=== PATIENT | female | born 1945 | race Caucasian/White ===

== ENCOUNTER 2016-06-25 15:11 | Inpatient (IN) | payer MEDICARE, MEDICAID ==
[~2016-06-25] VITALS: Ht 152.4 cm; Wt 66.6 kg
--- NOTE | ~2016-06-25 | WND ---
ADMIT: 06/25/2016 RM/LOC: 533 [facility] MR#: [id number] [address] [address] [place] [address] Wound Care Clinic SEX: F AGE: 71 : 1945 DATE OF VISIT: 06/26/2016 TIME OF VISIT: 40 minutes. REASON FOR VISIT: Evaluation and treatment of bilateral lower extremity ulcerations. HISTORY OF PRESENT ILLNESS: Sheire is a 71-year-old female, who was admitted to the hospital for increased confusion. She is well known to Wound Care as we have followed her in the past for venous insufficiency ulcers. She is currently being followed by Dermatology for Unna boot changes 2 times weekly. The patient is pleasantly confused. Her granddaughter is at her bedside. 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 PAST SURGICAL HISTORY: History of appendectomy, back surgery, kyphoplasties for osteoporosis, cholecystectomy, EGDs with evidence of upper gastrointestinal bleed, hip surgery, fracture of both hips in 2011, neck surgery, and tonsillectomy. SOCIAL HISTORY: She is residing in a snf. She used to reside in [place] with her sister. She also lived in [place]. She denies any tobacco, alcohol, or illicit drug use. 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 ALLERGIES: Neosporin, penicillin, mycin, Plavix, doxycycline, Bactroban, cephalosporins, macrolides, ketolides, neomycin, polymyxin, and sulfa. CURRENT MEDICATIONS: Being held due to the increased confusion; however, according to the chart per Dr. Salazar, her medication list: 1. Acetaminophen. 2. Benadryl. 3. BenGay. 4. Tessalon Perles. 5. Calcium supplementation. 6. Carafate. 7. Cetirizine. 8. Cyclobenzaprine. 9. Docusate sodium. 10.Fentanyl. 11.Iron. 12.Flonase. 13.Potassium supplementation. ADMIT: 06/25/2016 RM/LOC: 533 [facility] MR#: [id number] [address] [address] [place] [address] Wound Care Clinic SEX: F AGE: 71 : 1945 14.Lasix. 15.Maalox. 16.Metoprolol. 17.Bactroban. 18.Sliding scale insulin. 19.Nystatin. 20.Omeprazole. 21.Oxycodone. 22.Requip. 23.Seroquel. 24.Zoloft. 25.Tylenol. 26.Vitamin D. REVIEW OF SYSTEMS: It is difficult to obtain review of systems secondary to her confusion. PHYSICAL EXAMINATION: VITAL SIGNS: Blood pressure 107/53, pulse 90, temperature 97.8, and respirations 20. GENERAL: Sherie is an alert, 71-year-old, but is pleasantly confused. EXTREMITIES: Assessment of bilateral lower extremities reveals intact Unna boots. Upon removal, it is noted the patient has hemosiderin staining to bilateral lower extremities. She has no edema. She has 2+ dorsalis pedis pulses bilaterally. Minimal hair growth below the knee. She has a superficial ulceration on her left anterior quinteros that measures 3 cm in width x 1 cm in length x 0.1 cm in depth. No other open draining areas are noted. She does have a lacy reticular rash over her bilateral thighs and torso both anteriorly and posteriorly. She does report pruritus with this. ASSESSMENT: 1. Venous insufficiency with venous insufficiency ulcer. 2. Rash. 3. Type 2 diabetes mellitus. ADMIT: 06/25/2016 RM/LOC: 533 [facility] MR#: [id number] [address] [address] [place] [address] Wound Care Clinic SEX: F AGE: 71 : 1945 PLAN: After cleansing bilateral lower extremities well with warm soapy water, rinsing, and patting dry, I applied Aloe [place] to bilateral lower extremities. Interestingly enough, the rash is not where the Unna boots are, but practically everywhere else. I then used a Gelocast impregnated with Calmoseptine and applied Unna boot starting from the proximal base of the toes to popliteal fossa to bilateral lower extremities in a spiral fashion. Then, using Coban, I applied on top of the Gelocast to bilateral lower extremities. She tolerated the procedure well. Wound Care will continue to follow her on Tuesdays and Fridays for Unna boot changes. I would like to thank Dr. Salazar for allowing us to participate in her care. Mira Price, LYDIA/ radhal JOB #: [id number] CC: Kerry Salazar, Attending Physician Kerry Salazar, Family Physician
--- NOTE | ~2016-06-25 | WND ---
ADMIT: 06/25/2016 RM/LOC: 533 [facility] MR#: [id number] [address] [address] [place] [address] Wound Care Clinic SEX: F AGE: 71 : 1945 DATE OF VISIT: 06/30/2016 TIME IN: 0935 hours. TIME OUT: 1000 hours. REASON FOR VISIT: Unna's boots changed to bilateral lower extremities. This is request for wound care from Dr. Salazar. HISTORY OF PRESENT ILLNESS: This is a 71-year-old, female, well known to [facility]. She has been seen previously for venous insufficiency ulcerations. She is currently followed by Dermatology for Unna's boots changes twice a week. She was seen by Wound Care on 06/26/2016 after she was admitted to the hospital for increased confusion. At that visit, her Gelocast Unna's boots were replaced. She does have sensitivity to many of the Unna's boots. REVIEW OF SYSTEMS: She is examined in her hospital room where she is awake, alert, and oriented x3. She is in her recliner with her legs elevated. She denies any recent fever or chills. She says her appetite is increasing. No nausea or vomiting. She continues to have pain in her neck, her back, and her left lower extremity that she rates as a 5. Overall, she is feeling much better than she had upon admission. No problems with her boots. PHYSICAL EXAMINATION: VITAL SIGNS: Temperature 98, pulse is 74, respirations 18, blood pressure 147/65, O2 sats on room air is 100%. Focused exam to right lower extremity shows foot circumference is 21.5 cm, ankle is 19 cm, and calf 20 cm, above the malleolus is 27.5 cm. She does have hemosiderin staining noted. No open ulcerations noted. One small crust on the anterior surface. Posterior tibialis is 1+. Dorsalis pedis is 2+. No edema noted. To the left lower extremity, foot circumference is 22 cm, ankle is 20 cm, and calf 20 cm, malleolus is 27.5 cm. Posterior tibialis is 1+. Dorsalis pedis is 2+. She has her usual hemosiderin staining noted. No edema noted. On the anterior quinteros is a superficial ulceration that measures 1 cm x 0.7 cm with a depth of 0.1 cm. 100% of the wound base is red moist tissue. No surrounding erythema or induration. ASSESSMENT: Bilateral lower extremity venous insufficiency with superficial cutaneous ulceration, left lower extremity. ADMIT: 06/25/2016 RM/LOC: 533 [facility] MR#: [id number] [address] [place], [place] [id number] [place] [address] Wound Care Clinic SEX: F AGE: 71 : 1945 TREATMENT PLAN: The old Unna's wraps were removed without difficulty. The wounds were washed well with warm soapy water, rinsed, and patted dry. Aloe [place] was placed over lower extremities except over the ulceration on the left lower extremity. Over the ulceration, a non-stick pad was applied. Her Gelocast was wrapped from the toes to popliteal crease, covered with toes to popliteal crease. The patient is well-versed in how to care for Unna's boots. She knows to elevate her legs. She is getting ready to return back to the [facility] later on today. She will follow with Dermatology after discharge. Thank you, Dr. Salazar, for allowing us to care for this pleasant lady. Clair Rangel APRN/ merna JOB #: [id number] CC: Kerry Salazar MD, Attending Physician Kerry Salazar MD, Family Physician
[~2016-06-25 15:11] MED LIST: ATARAX-DPS25 MG PO; BUMEX DPS1 MG PO; CALTRATE-600 W600 MG PO; CARAFATE DPS1 GM PO; CARAFATE1 GM PO; CEROVITE ADVAN1 EACH PO; COLACE-DPS100 MG PO; COLACE100 MG PO; DURAGESIC50 MCG TP; FEOSOL325 MG PO; FLEXERIL DPS5 MG PO; FLEXERIL-DPS10 MG PO; FLONASE 0.05% D16 GM NS; GLUTOSE 1537.5 GM PO; HYTONE 1% DPS30 GM TP; KEFLEX500 MG PO; KLOR-CON M2020 ME1 PO; LASIX DPS40 MG PO; LASIX DPS80 MG PO; LIDODERM PATC1 PATCH TP; LOPRESSOR50 MG PO; LORTAB 10-3251 EACH PO; LUBRIDERM180 ML TP; MAALOX DPS30 ML PO; MAG-OX400 MG PO; MARYS PO; METOPROLOL TART25 MG PO; MICRO-K DPS10 MEQ PO; MYCOSTATIN PWD15 GM TP; NEURONTIN DPS100 MG PO; NOVOLIN R,100 UNITS/ SQ; NOVOLOG100 UNIT/2 SQ; PERCOCET 5 DPS1 TAB PO; PRILOSEC20 MG PO; PROTONIX40 MG PO; REQUIP DPS0.5 MG PO; REQUIP0.25 MG PO; REQUIP1 MG PO; SEROQUEL25 MG PO; SURFAK DPS240 MG PO; TYLENOL DP650 MG/20. PO; TYLENOL DPS325 MG PO; VANICREAM18200 GM TP; VITAMIN D350000 UNIT PO; VITAMIN D50000 UNIT PO; ZOFRAN4 MG PO; ZOLOFT DPS100 MG PO; ZOLOFT100 MG PO; ZYRTEC DPS10 MG PO; ZYRTEC10 MG PO
[2016-07-01] MEDS ORDERED: ATARAX DPS50 MG PO (16:41)
[2016-07-01] MEDS ORDERED: LACTULOSE20 GM/30 M PO (16:42)
[2016-07-01] MEDS ORDERED: PEPCID DPS20 MG PO (16:43)
[2016-07-01] MEDS ORDERED: NILSTAT SUSP DPS PO (16:43)
[2016-07-01] MEDS ORDERED: KENALOG OINT. 015 GM TP (16:45)
[2016-07-01] MEDS ORDERED: NYSTATIN1 EAC2 TP (16:46)
[2016-07-01] MEDS ORDERED: EUCERIN CREME57 GM TP (16:48)
[2016-07-01] MEDS ORDERED: ROBITUSSIN DM D30 ML PO (16:50)
[2016-07-01] MEDS ORDERED: ALDACTONE100 MG PO (16:55)
[2016-07-01] MEDS ORDERED: ULTRAM DPS50 MG PO (16:55)
--- NOTE | 2016-07-02 08:02 | HP ---
ADMIT: 06/25/2016 RM/LOC: 533 [facility] MR#: [id number] [address] [address] [place] [address] History and Physical SEX: F AGE: 71 : 1945 DATE OF SERVICE: REASON FOR ADMISSION: Decreased level of consciousness, confusion, disorientation with hallucinations. HISTORY OF PRESENT ILLNESS: Sherie is a very nice elderly patient, whom I care for. PAST MEDICAL HISTORY: She has a complex past medical history which includes: 1. History of chronic pain syndrome. 2. History of anemia. 3. Thrombocytopenia. 4. Non-alcoholic cirrhosis of her liver with history of esophageal varices. 5. History of osteoporosis. 6. History of compression fractures. 7. Frequent hospitalizations. 8. History of chronic MRSA colonization of lower extremities with chronic venous stasis ulcerations. 9. Chronic renal insufficiency. 10.Hypertension. 11.Chronic pain. 12.Type 2 diabetes. PAST SURGICAL HISTORY: 1. History of appendectomy. 2. Back surgery. 3. Kyphoplasties for osteoporosis. 4. Cholecystectomy. 5. EGDs with evidence of upper gastrointestinal bleed. 6. Hip surgery, fractured both hips in 2011. 7. Neck surgery. 8. Tonsillectomy. SOCIAL HISTORY: She is currently living in the snf. FAMILY HISTORY: Noncontributory. ALLERGIES: AMITRIPTYLINE, ANCEF, BACLOFEN, DIFLUCAN, DOXYCYCLINE, LEVAQUIN, NEOMYCIN, NEOSPORIN, NUBAIN, OMNICEF, PENICILLIN, PURPLE DYE, SULFA. WE HAVE IN THE PAST GIVEN HER PENICILLIN DERIVATIVES, SHE HAS BEEN ABLE TO TOLERATE IT WELL. MEDICATIONS: This is the med list available at the office, may be incomplete. 1. Acetaminophen 325 mg two tablets every 4 hours p.r.n. pain. 2. Benadryl 25 mg two tablets at bedtime. 3. BenGay. 4. Tessalon Perles t.i.d. p.r.n. 5. Calcium supplementation. 6. Carafate. ADMIT: 06/25/2016 RM/LOC: 533 [facility] MR#: [id number] [address] [facility] [address] [place] [address] [place] [address] History and Physical SEX: F AGE: 71 : 1945 7. Cetirizine 10 mg one tablet p.o. daily. 8. Cyclobenzaprine 5 mg one tablet p.o. b.i.d. 9. Docusate sodium. 10.Fentanyl 50 mcg transdermal patch. 11.Iron 325 mg twice daily. 12.Flonase. 13.Potassium supplementation one tablet b.i.d. 14.Lasix 40 daily. 15.Maalox. 16.Metoprolol 25 mg half a tab b.i.d. 17.Bactroban to local wounds. 18.Sliding scale insulin of NovoLog FlexPen. 19.Nystatin p.r.n. use. 20.Omeprazole 20 mg daily. 21.Oxycodone/acetaminophen one tablet every 6 hours p.r.n. pain. 22.Requip 0.25 mg one tablet p.o. t.i.d. 23.Seroquel 25 mg at bedtime. 24.Zoloft 100 mg daily. 25.Tylenol Extra Strength. 26.Vitamin D. REVIEW OF SYSTEMS: She is unable to give her review of systems. Her family member is here. Her niece says that she is having increasing confusion, disorientation, hallucinations, and combativeness. She has confusion. Falls asleep easily. Has an ashen color. PHYSICAL EXAMINATION: GENERAL: She is very sleepy. VITAL SIGNS: Blood pressure is 118/74, heart rate is 81, temp is 95.6. HEENT: Her mucosa is dry. She recently had a tooth removed as well as dental caries. HEART: Regular rhythm. LUNGS: Clear, but diminished to auscultation. ABDOMEN: Soft. She has an ashen color. EXTREMITIES: She has bilateral dressings to her lower extremities. 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 At this time, we will admit to [facility]. She appears dehydrated. We will get appropriate assessment. We will start an IV and give her some gentle IV fluids. Rule out infection as a possible etiology. In addition, rule out worsening liver function. As per her niece who is with her, we feel that she does not want resuscitative measures performed, but we will ask her sister who is her power- of-family law attorney to make that final decision. Her prognosis is guarded. We will admit for further assessment, continued care. In addition, with her diabetes, we will check her blood sugars before meals and at bedtime. Diet as tolerated. Her medications will be held at this time per my review. Kerry Salazar MD/ merna JOB #: [id number] CC: Kerry Salazar, Attending Physician Kerry Salazar, Family Physician
--- NOTE | 2016-07-08 07:58 | DS ---
ADMIT: 06/25/2016 RM/LOC: 533 [facility] MR#: [id number] [address] [address] [place] [address] Discharge Summary SEX: F AGE: 71 : 1945 ADMISSION DATE: 06/25/2016 DISCHARGE DATE: 06/30/2016 DISCHARGE DIAGNOSES: 1. Delirium. 2. Decreased level of consciousness. 3. History of restless legs syndrome. 4. Diabetes type 2. 5. Chronic kidney disease. 6. Chronic lower extremity Methicillin resistant staphylococcus colonization. 7. Osteoporosis. 8. History of non-alcoholic liver disease, nonalcoholic steatohepatitis. 9. Esophageal varices and cirrhosis of the liver. HISTORY OF PRESENT ILLNESS: Well documented in her H and P. Her laboratory and radiographic assessment is as follows: On admission, her white count was 5.5, hemoglobin 12.2. Her INR was 1.6. Urinalysis showed no acute abnormalities. Her sodium on admission was 141, potassium 4.5, BUN and creatinine were 20.53 and 1.8. AST of 31, ALT of 33, ammonia of 40. Her blood sugars ranged between 77-134. ABGs on admission showed pH of 7.36, pCO2 of 27, pO2 of 73, blood culture showed no growth. CT of head was negative for intracranial abnormalities. Chest x-ray showed no lobar pneumonia. Ultrasound of her abdomen shows cirrhosis and splenomegaly. HOSPITAL COURSE: [facility] with decreased level of consciousness, confusion, disorientation, was felt to be secondary to possible worsening of her known hepatic disease. Also concerns about interactions of medications. She was admitted to telemetry. Serial laboratory assessments were performed, which showed no acute abnormalities except ammonia level was elevated. We did discontinue her Duragesic patch. She was hydrated. With her medications reviewed and changed, she did have improvement in her mental status. As per her family's request, she is a DNR ADMIT: 06/25/2016 RM/LOC: 533 [facility] MR#: [id number] [address] [address] [place] [address] Discharge Summary SEX: F AGE: 71 : 1945 status. We did have wound care see her for the lower extremity chronic MRSA colonization. She has unna boots in place. She has slow but sure improvement in her mental status. She was started on meropenem and rifaximin in concerns about possible peritonitis as an etiology. She was started on Rx to promote bowel movements. Ultrasound was performed, she did not have enough fluid to do a paracentesis. She had Physical Therapy and Occupational see her, resumed on her Zoloft therapy. Her activity level was slowly increased. She was subsequently discharged, continued wound care at Derm clinic. Medications as per MAR and follow up with me in 7-10 days. Chronic pain syndrome, diabetes, neuropathy, restless, legs, chronic venous stasis, renal insufficiency, chronic MRSA colonization, BASHIR, cirrhosis, esophageal varices. Prognosis is guarded. Kerry Salazar MD/ merna JOB #: [id number] CC: Kerry Salazar MD, Attending Physician Kerry Salazar MD, Family Physician
== END 2016-06-30 11:08 | DRG 442 ==
LOC: 5MS 15:11
PROVIDERS: ADMIT Internal Medicine
DX: K72.90 Hepatic failure, unspecified without coma (principal); N17.9 Acute kidney failure, unspecified; E11.22 Type 2 diabetes mellitus with diabetic chronic kidney disease; I85.10 Secondary esophageal varices without bleeding; L97.919 Non-pressure chronic ulcer of unspecified part of right lower leg with unspecified severity; L89.92 Pressure ulcer of unspecified site, stage 2; L97.929 Non-pressure chronic ulcer of unspecified part of left lower leg with unspecified severity; R44.3 Hallucinations, unspecified; E86.0 Dehydration; D64.9 Anemia, unspecified; K75.81 Nonalcoholic steatohepatitis (NASH); K74.60 Unspecified cirrhosis of liver; M19.90 Unspecified osteoarthritis, unspecified site; G25.81 Restless legs syndrome; R41.82 Altered mental status, unspecified; G89.4 Chronic pain syndrome; M81.0 Age-related osteoporosis without current pathological fracture; N18.9 Chronic kidney disease, unspecified; I12.9 Hypertensive chronic kidney disease with stage 1 through stage 4 chronic kidney disease, or unspecified chronic kidney disease; Z86.14 Personal history of Methicillin resistant Staphylococcus aureus infection; Z66 Do not resuscitate

== ENCOUNTER → 2016-08-06 | Outpatient (CLI) | payer MEDICARE, MEDICAID ==
[~2016-08-06] MED LIST changes: +ALDACTONE100 MG PO; +ATARAX DPS50 MG PO; +EUCERIN CREME57 GM TP; +KENALOG OINT. 015 GM TP; +LACTULOSE20 GM/30 M PO; +NILSTAT SUSP DPS PO; +NYSTATIN1 EAC2 TP; +PEPCID DPS20 MG PO; +ROBITUSSIN DM D30 ML PO; +ULTRAM DPS50 MG PO
== END | disposition home or self-care (01) ==
LOC: PTH.S 15:15
DX: K72.90 Hepatic failure, unspecified without coma (principal)

== ENCOUNTER → 2016-08-20 | Outpatient (CLI) | payer OTHER, MEDICARE, MEDICAID | END | disposition home or self-care (01) | LOC: THER.S 12:44 | DX: S81.801A Unspecified open wound, right lower leg, initial encounter (principal) ==